=== PATIENT | female | born 1990 | race Caucasian/White ===

== ENCOUNTER 2018-03-16 00:52 | Inpatient (IN) | payer MEDICAID ==
[~2018-03-16] VITALS: Ht 157.5 cm; Wt 70.8 kg
[2018-03-16 06:09] VITALS: BP 107/66
== END 2018-03-16 08:55 | disposition home or self-care (01) | DRG 566 ==
LOC: MLD 00:52
PROVIDERS: ADMIT Obstetrics & Gynecology; ATTEND Obstetrics & Gynecology
DX: O26.893 Other specified pregnancy related conditions, third trimester (principal); R10.9 Unspecified abdominal pain; Z3A.36 36 weeks gestation of pregnancy
CPT/HCPCS: 76805; 81000; Q0092